=== PATIENT | female | born 1975 | race African-American/Black ===

== ENCOUNTER 2025-03-23 13:19 | Inpatient (IN) | payer OTHER ==
[~2025-03-23] VITALS: Ht 170.2 cm; Wt 85.9 kg
[2025-03-23] MEDS: 0.9%NACL 1000ML 1,000 ML IV ONE (13:44)
[2025-03-23 13:48] LABS: IMMATURE GRANULOCYTE ABSOLUTE 0.06 K/uL (0-1); NUCLEATED RED BLOOD CELLS 0.0 % (0.0-0.19); PLATELET COUNT (AUTO) 253 K/uL (130-400); RED BLOOD CELL COUNT(AUTO) 4.86 MIL/uL (4.00-5.50); RED CELL DISTRIBUTION WIDTH 13.7 % (11.0-15.5); WHITE BLOOD COUNT (AUTO) 10.8 K/uL (4.8-10.8)
[2025-03-23 13:56] LABS: CREATININE 0.7 mg/dL (0.5-1.0); GLOMERULAR FILTR. RATE CALC 107.0 mL/min (>90); GLUCOSE,RANDOM 111.0 mg/dL (70-105); SODIUM SERUM 142.0 mmol/L (136-145); UREA NITROGEN, BLOOD 12.0 mg/dL (7-18)
[2025-03-23 14:01] LABS: ASPARTATE AMINOTRANSFERASE 23.0 U/L (10-37); TOTAL PROTEIN, SERUM 8.8 g/dL (6.0-8.3)
--- NOTE | 2025-03-23 14:26 | EKG ---
[facility] Test Date: 2025-03-23 Test Time: 14:07:51 Pat Name: AMELIA QUIJANO Department: ED Room: ED Gender: F Imaging Services Director: [id number] : 1975 Requested By: ELENA VALLEJO Order Number: [id number] Reading MD: Devante Patel Measurements Intervals [place] Rate: 95 P: 24 GA: 205 QRS: 17 QRSD: 85 T: 4 QT: 336 QTc: 423 Interpretive Statements Sinus rhythm Prolonged GA interval No previous ECG available for comparison Electronically Signed On 03-23-2025 22:20:19 CDT by Devante Patel Please click the below link to view image of tracing.
--- NOTE | 2025-03-23 16:21 | HMCIMG ---
EXAM: CT Abdomen and Pelvis Without IV contrast CLINICAL HISTORY: upper abdominal pain TECHNIQUE: Axial computed tomography images of the abdomen and pelvis without intravenous contrast. CONTRAST: No IV contrast. COMPARISON: None provided. FINDINGS: LUNG BASES: Dependent airway disease along bilateral lower lobes, presumed to represent basal atelectasis. LIVER: Unremarkable. GALLBLADDER AND BILE DUCTS: The gallbladder is not well visualized. No biliary ductal dilatation is evident. PANCREAS: Unremarkable. SPLEEN: Unremarkable. ADRENAL GLANDS: Unremarkable. KIDNEYS, URETERS, AND BLADDER: The kidneys appear within normal limits. There is no hydronephrosis or hydroureter. No urinary calculi are seen. STOMACH AND BOWEL: Colonic diverticulosis without diverticulitis. Unremarkable appearance of the stomach and small bowel. No evidence of bowel obstruction. No evidence suggesting enteritis or colitis. Question post surgical changes to the abdominal wall. APPENDIX: Appendix is not visualized however no inflammatory changes. PERITONEUM: No free fluid. No free air. LYMPH NODES: No enlarged lymphadenopathy is evident. VASCULATURE: No evidence of abdominal aortic aneurysm. BONES: No aggressively appearing osseous lesion. No acute osseous pathology is evident. IMPRESSION: No acute intraabdominal or pelvic pathology. /[place]
--- NOTE | 2025-03-23 18:21 | ERN ---
ED Note History of Present Illness Stated Complaint: N/V Chief Complaint: Nausea,Vomiting,Diarrhea Time Seen by MD: 13:20 Dictation: 49-year-old female presenting to the emergency department with epigastric pain nausea vomiting no diarrhea few days but worse today. Patient reports 8/10 cramping pain. History of gallbladder removal. Allergies: Coded Allergies: Sulfa (Sulfonamide Antibiotics) (Unverified Allergy, Unknown, 03/23/25) sulfamethoxazole (Unverified Allergy, Unknown, 03/23/25) trimethoprim (Unverified Allergy, Unknown, 03/23/25) Past Medical History Past Medical History: Anxiety, Migraines Surgical History: None Review of System Dictation Constitutional: Negative for fever,chills, and weight loss Eyes: Negative for injury, pain,redness, and discharge ENT: Negative for injury,pain or swelling Cardiovascular: Negative for chest pain, palpitations, and edema Respiratory: Negative for shortness of breath, cough, and wheezing, Abdomen/GI: Per HPI Back: Negative for injury and pain : Negative for injury, bleeding and discharge MS/Extremity: Negative for injury and deformity Skin: Negative for rash, and discoloration Neuro: Negative for headache, weakness, numbness, tingling, and seizure Psych: Negative for suicide ideation, homicidal ideation, and hallucinations Initial Vital Sign VS Vital Signs Date Time Temp Pulse Resp B/P (MAP) Pulse Ox O2 Delivery O2 Flow Rate FiO2 03/23/25 13:20 98.2 97 18 157/92 98 03/23/25 13:49 Room Air* 0 21 Physical Exam Dictation General: awake, alert, uncomfortable Head/Face: Normocephalic, atraumatic Eyes: PERRL, EOMI, vision at baseline ENT: oral cavity clear, TMs clear, no signs of infection Neck: Trachea midline, supple, no nuchal rigidity Cardiovascular: RRR, normal S1/S2, No MRGs, no JVD Respiratory: CTAB, no respiratory distress, No rales or wheezes Abdomen: Soft, TTP diffusely, non-distended, normal bowel sounds, no guarding or rebound. Skin: Warm, dry, normal turgor, no rash MS/Extremity: Pulses equal, no cyanosis, neurovascular intact, FROM Neuro: COAx4, GCS 15, strength 5/5, CN 2-12 intact, normal cerebellar exam, normal gait, Psych: Normal behavior, mood, and affect normal Results (Laboratory/Radiology) Laboratory/Radiology Laboratory Tests Test 03/23/25 13:41 White Blood Count 10.8 K/uL (4.8-10.8) Red Blood Count 4.86 MIL/uL (4.00-5.50) Hemoglobin 14.4 g/dL (12.0-16.0) Hematocrit 44.0 % (36-48) Mean Corpuscular Volume 90.5 fL (79-99) Mean Corpuscular Hemoglobin 29.6 pg (27.0-33.0) Mean Corpuscular Hemoglobin Concent 32.7 g/dL (32.0-36.0) Red Cell Distribution Width 13.7 % (11.0-15.5) Platelet Count 253 K/uL (130-400) Mean Platelet Volume 9.6 fL (7.5-10.5) Immature Granulocyte % (Auto) 0.6 % (0-1) Neutrophils (%) (Auto) 70.4 % (40.0-77.0) Lymphocytes (%) (Auto) 23.2 % (21.0-51.0) Monocytes (%) (Auto) 5.1 % (3.0-13.0) Eosinophils (%) (Auto) 0.3 % (0.0-8.0) Basophils (%) (Auto) 0.4 % (0.0-5.0) Neutrophils # (Auto) 7.7 K/uL (1.8-7.7) Lymphocytes # (Auto) 2.5 K/uL (1.0-4.8) Monocytes # (Auto) 0.6 K/uL (0.1-1.0) Eosinophils # (Auto) 0.03 K/uL (0.00-0.70) Basophils # (Auto) 0.04 K/uL (0.00-0.20) Absolute Immature Granulocyte (auto 0.06 K/uL (0-1) Nucleated Red Blood Cells 0.0 % (0.0-0.19) Sodium Level 142 mmol/L (136-145) Potassium Level 3.7 mmol/L (3.5-5.1) Chloride Level 103 mmol/L (101-111) Carbon Dioxide Level 26 mmol/L (21-32) Blood Urea Nitrogen 12 mg/dL (7-18) Creatinine 0.7 mg/dL (0.5-1.0) Glomerular Filtration Rate Calc 107 mL/min (>90) Random Glucose 111 mg/dL (70-105) H Total Calcium 9.9 mg/dL (8.5-10.1) Total Bilirubin 0.3 mg/dL (0.2-1.0) Direct Bilirubin 0.1 mg/dL (0.0-0.3) Aspartate Amino Transf (AST/SGOT) 23 U/L (10-37) Alanine Aminotransferase (ALT/SGPT) 21 U/L (12-78) Alkaline Phosphatase 109 U/L (50-136) Troponin I High Sensitivity 4 ng/L (4-50) Total Protein 8.8 g/dL (6.0-8.3) H Albumin 4.2 g/dL (3.5-5.0) Lipase 40 U/L (16-77) Labs Reviewed?: Yes EKG Comment: Heart rate 95 normal sinus rhythm normal intervals ED Course ED Course Orders Procedure Category Date Status Time 12 Lead Ekg Tracing- EKG 03/23/25 Complete Technical 13:29 Basic Metabolic Panel LAB 03/23/25 Complete 13:29 Cbc With Differential LAB 03/23/25 Complete 13:29 Hepatic Function Panel LAB 03/23/25 Complete 13:29 Lipase LAB 03/23/25 Complete 13:29 Troponin I High LAB 03/23/25 Complete Sensitivity 13:29 Ondansetron 4mg Inj PHA 03/23/25 Complete (Zofran 4mg Inj) 13:30 0.9%Nacl 1000ml (Ns PHA 03/23/25 Complete 1000ml) 13:30 Morphine 4mg Syg PHA 03/23/25 Complete (Morphine 4mg Syg) 15:00 Ct Abd/Pel Wo Con CT 03/23/25 Resulted Renal/Appy 14:43 Ondansetron 4mg Inj PHA 03/23/25 Complete (Zofran 4mg Inj) 17:00 Current Medications Medications (Trade) Dose Ordered Sig/Phill Route PRN Reason Start Time Stop Time Status Last Admin Dose Admin Morphine Sulfate (morPHINE 4MG SYG) 4 mg ONCE ONCE IVP 03/23/25 15:00 03/23/25 15:01 DC 03/23/25 15:07 Ondansetron HCl (zoFRAN 4MG INJ) 4 mg ONCE ONCE IVP 03/23/25 13:30 03/23/25 13:32 DC 03/23/25 13:44 Ondansetron HCl (zoFRAN 4MG INJ) 4 mg ONCE ONCE IVP 03/23/25 17:00 03/23/25 17:01 DC 03/23/25 16:56 Sodium Chloride 1,000 ml @ 0 mls/hr ONCE ONCE IV 03/23/25 13:30 03/23/25 13:32 DC 03/23/25 13:44 Vital Signs Date Time Temp Pulse Resp B/P (MAP) Pulse Ox O2 Delivery O2 Flow Rate FiO2 03/23/25 15:54 98.1 94 17 128/72 100 Room Air* 0 21 03/23/25 13:49 98.6 96 20 148/92 100 Room Air* 0 21 03/23/25 13:20 98.2 97 18 157/92 98 Medical Decision Making MDM MDM: Differential diagnosis: Rationale: Tests considered and ordered secondary to shared decision making include: labs, ECG and radiology Previous outside records reviewed: Old ER visits. Risk of complication and/or morbidity or mortality of patient management: None Medications-Per medication reconciliation Need for hospitalization: Patient does meet criteria for hospitalization. Need for emergency major/minor surgery: No There are no social concerns with this patient. Prescription drug management Prescriptions will include symptomatic care Patient's prior external medical records from other ER visits were reviewed by me as indicated. Prior testing and results from previous visits were reviewed. Prior tests were taken into account with medical decision making and resource utilization, independent historian/historians were used to obtain complete medical history. I independently interpreted the test that were performed, results were reviewed by me and considered findings on radiology if ordered. Medical management and examination interpretation discussions were had by me with other qualified healthcare professionals as indicated for the patient's care. 49-year-old female with intractable vomiting and abdominal pain initial workup stable IV fluids and pain medicine given x2. DX & DISP Disposition: Observation Departure Impression: Primary Impression: Acute vomiting Additional Impression: Intractable abdominal pain Condition: Stable Referrals: SELF,REFERRAL (PCP) ELENA VALLEJO MD Mar 23, 2025 18:21
--- NOTE | 2025-03-23 18:38 | HP ---
History of Present Illness Reason for Visit: nv History of Present Illness Ms. Perla is a 49-year-old female that was seen and examined today on 03/23/2025. Patient is a good historian of personal health Patient reports that she came to the emergency department with a chief complaint of abdominal pain. Onset was three days ago. Location is epigastric. Duration is on and off. Character is described as stabbing pain. Symptoms are aggravated with eating. There was no alleviating factors. Patient reports associated nausea and vomiting. Past Medical History ADDITIONAL PAST MEDICAL HISTORY: [Denies] SOCIAL HISTORY: [Negative for smoking, alcohol use, drug use. Patient lives with the daughter, Alejandra. Patient has good access to health care through her insurance. 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 Patient denies difficulty paying her bills.] SURGICAL HISTORY: [Hysterectomy, oophorectomy, cholecystectomy, section x3, lysis of adhesions, tonsillectomy, abdominoplasty with muscle plication] Review of Systems General: No Fever, No Chills, No Night Sweats, No Fatigue, No Malaise, No Appetite, No Other HEENT: No Head Aches, No Visual Changes, No Eye Pain, No Ear Pain, No Dysphasia, No Sinus Congestion, No Post Nasal Drip, No Sore Throat, No Other Pulmonary: No Dyspnea, No Cough, No Pleuritic Chest Pain, No Other Cardiovascular: No: Chest Pain, Palpitations, Orthopnea, Paroxysmal Noc. Dyspnea, Edema, Lt Headedness, Other Gastrointestinal: Nausea, Vomiting, Abdominal Pain; No: Diarrhea, Constipation, Melena, Hematochezia, Other Genitourinary: No Dysuria, No Frequency, No Incontinence, No Hematuria, No Retention, No Other Musculoskeletal: No: other, neck pain, shoulder pain, arm pain, back pain, hand pain, leg pain, foot pain Skin: No Urticaria, No Rash, No Other Neurological: No: Weakness, Numbness, Incoordination, Change in speech, Confusion, Seizures, Other Allergies: Coded Allergies: Sulfa (Sulfonamide Antibiotics) (Unverified Allergy, Unknown, 03/23/25) sulfamethoxazole (Unverified Allergy, Unknown, 03/23/25) trimethoprim (Unverified Allergy, Unknown, 03/23/25) Exam Vital Signs Vital Signs Date Time Temp Pulse Resp B/P (MAP) Pulse Ox O2 Delivery O2 Flow Rate FiO2 03/23/25 15:54 98.1 94 17 128/72 100 Room Air* 0 21 General Appearance: Alert, Oriented X3, Cooperative, mild distress HEENT: Atraumatic, EOMI, Mucous membr. moist/pink Respiratory: Clear to auscultation, Normal air movement, NL respiratory effort Cardiovascular: Regular rate, Regular rhythm, Normal S1, Normal S2 Abdominal: Normal bowel sounds, Soft, No tenderness Extremities: No edema Skin: No significant lesion Neuro: Normal speech, Strength at 5/5 X4 ext, Sensation intact, Cranial nerves 3-12 NL Psych/Mental Status: Mental status NL, Mood NL, Thoughts/Content NL Assessment/Plan ASSESSMENT: [ Intractable abdominal pain, POA Intractable nausea and vomiting, POA] PLAN: [ Admit patient to medical floor as inpatient status. Reviewed patient's CT of abdomen and pelvis which was unremarkable. Reviewed patient's labs which were unremarkable. Check urinalysis, follow up with the results. As needed analgesia with morphine. As-needed antiemetic, Zofran. Keep patient NPO except for medications with tiny sips of water for GI rest. Lactated Ringer's at 125 mL/HR IV fluid maintenance therapy GI prophylaxis, famotidine DVT prophylaxis, Lovenox ADVANCED CARE PLANNING 1. Which of the following were discussed? Hospice Care - Yes Therapeutic options - yes Advance Directives - Yes - patient states he does not have any advance direc tives in place at this time, however her daughter Alejandra Walker can make decisions for her if she becomes unable. Other discussions - patient wishes to remain a full code at this time 2. Discussed with who? Patient 3. Voluntary nature of this service was explained to the patient? Yes 4. Amount of time spent - ___16 minutes____ 5. Reviewed by Physician? (if this service was performed by NPP) Yes ALEA CEDEÑO PLATFORM SOFTWARE ENGINEER Mar 23, 2025 18:38
[2025-03-23] MEDS: LACTATED RINGERS 1000ML 1,000 ML IV SCH (19:43)
[2025-03-23] MEDS: FAMOTIDINE 20MG TAB PO SCH (20:13)
[2025-03-23] MEDS: ENOXAPARIN SODIUM 40 MG/0.4 ML SYRINGE SQ SCH (20:14)
--- NOTE | 2025-03-23 22:58 | NUR ---
PT TRANSFERRED TO A HOSPITAL BED AT THIS TIME.
[2025-03-23] MEDS: PROMETHAZINE HCL 25 MG/ML 1ML AMPULE IM ONE (23:40)
[2025-03-24] VITALS (8 sets, daily range): BP systolic 109–134; BP diastolic 58–90; PULSE 82–93; RESP 16–20; TEMP 98.1–98.4; O2SAT 98–100
[2025-03-24] MEDS ORDERED: ALPR0.5T PO (03:57)
--- NOTE | 2025-03-24 04:30 | NUR ---
ADMISSION NOTE RECEIVED REPORT FROM LORE BUTLER. PATIENT ALERT, ORIENTED, ABLE TO AMBULATE AND MAKE NEEDS KNOWN. PATIENT SETTLED INTO BED, GIVEN CALL LIGHT. CONFIRMED MEDICATION LIST AND PREFERRED PHARMACY. PATIENT CONNECTED TO LR @ 125 ML/HR, ON ROOM AIR. PHYSICAL ASSESSMENT PERFORMED, SEE ASSESSMENT DOCUMENTATION. CALL LIGHT IN REACH OF PATIENT.
[2025-03-24 06:23] LABS: IMMATURE GRANULOCYTE ABSOLUTE 0.04 K/uL (0-1); NUCLEATED RED BLOOD CELLS 0.0 % (0.0-0.19); PLATELET COUNT (AUTO) 214 K/uL (130-400); RED BLOOD CELL COUNT(AUTO) 4.18 MIL/uL (4.00-5.50); RED CELL DISTRIBUTION WIDTH 13.8 % (11.0-15.5); WHITE BLOOD COUNT (AUTO) 8.8 K/uL (4.8-10.8)
[2025-03-24 06:34] LABS: CREATININE 0.7 mg/dL (0.5-1.0); GLOMERULAR FILTR. RATE CALC 107.0 mL/min (>90); GLUCOSE,RANDOM 88.0 mg/dL (70-105); PHOSPHORUS 4.6 mg/dL (2.5-4.9); SODIUM SERUM 143.0 mmol/L (136-145); UREA NITROGEN, BLOOD 11.0 mg/dL (7-18)
--- NOTE | 2025-03-24 11:12 | PN ---
[facility] PROGRESS NOTE Date of Service: Mar 24, 2025 Time of Service: 11:08 SUBJECTIVE: 03/24 patient is seen and examined at bedside, case discussed with the RN, no acute events overnight, patient alert oriented x3, hemodynamically stable, she complains of migraine headache, requesting Fioricet. During my visit patient stated that she was complaining of intractable vomiting when she presented to the ER associated with the epigastric discomfort, amylase and lipase negative, CT of the abdomen no acute findings. We have requested a 12 lead EKG, echocardiogram to evaluate ejection fraction, GI consultation for possible EGD, we will start Fioricet one time now, follow troponin level, amylase and lipase level stat. We will start the patient on regular diet. Follow UA. If medically stable, and no plan from GI standpoint, anticipate discharge home in the next 24 hours. REVIEW OF SYSTEMS CONSTITUTIONAL: Denies fevers, chills, or night sweats. No unintentional weight loss reported. NEUROLOGICAL: Denies headache, amaurosis fugax, motor weakness, sensory deficit, vertigo/spinning sensation, gait abnormalities, or tremors. ENT: No hearing loss, otalgia, otorrhea, rhinitis, rhinorrhea, hoarseness, or sore throat. CARDIOVASCULAR: Denies any exertional angina, dyspnea on exertion, orthopnea, paroxysmal nocturnal dyspnea, palpitations, life-threatening arrhythmias, claudication. PULMONARY: Denies any shortness of breath, cough, phlegm/sputum, hemoptysis, pleuritic chest pain. SLEEP: Denies morning headaches, daytime somnolence or napping. Denies difficulty falling asleep, staying asleep, waking from sleep. Denies knowledge of snoring. GASTROINTESTINAL: Denies any type of dysphagia to either liquids or solids. Denies nausea, vomiting, pyrosis, early satiety, abdominal pain, diarrhea, constipation, or changes in stool consistency or caliber. Denies coffee-ground emesis, hematemesis, hematochezia, or melanotic stools. GENITOURINARY: Denies frequency, urgency, nocturia, hematuria or incontinence (Storage/Irritative symptoms.) Low urinary stream, straining to void, urinary intermittency or hesitancy, splitting of the voiding stream, terminal dribbling. ENDOCRINOLOGIC: Denies polyuria, polydipsia, polyphagia or heat/cold intolerances. HEMATOLOGIC: Denies thrombophilia/previous clots, or coagulopathy/bleeding disorders. ONCOLOGIC: Denies personal history of malignancy. DERMATOLOGIC: Denies rashes or pruritus. PSYCHIATRIC: Denies any suicidal or homicidal ideation. Denies hallucinations. PHYSICAL EXAM GENERAL APPEARANCE: The patient is awake, alert, and oriented, in no acute cardiopulmonary distress. NEUROLOGICAL: Cranial nerves II-XII grossly intact. Motor is 5/5 in bilateral upper and lower extremities proximal to distal. No sensory deficits. HEENT: Face is symmetric. Pupils are equal and reactive. Extraocular movements are intact. NECK: Supple. No JVD. No thyromegaly. No submental, submandibular, pre- /postauricular, occipital or supraclavicular lymphadenopathy. CHEST: Normal chest expansion. No Telemetry. LUNGS: Absence of any rales, rhonchi or any wheezing. CARDIOVASCULAR: Regular. S1 and S2 normal. No appreciable rubs, murmurs or gallops. ABDOMEN: Soft, nontender, and nondistended. There is no rebound, voluntary guarding, or rigidity. : Deferred. No Bob. EXTREMITIES: Non-edematous and not cyanotic. No clubbing. Good capillary refill. SKIN: No skin breakdown. Vital Signs (last 8hr) Date Time Temp Pulse Resp B/P (MAP) Pulse Ox O2 Delivery O2 Flow Rate FiO2 03/24/25 07:42 98.2 85 18 109/71 98 Room Air 03/24/25 04:00 98.1 82 16 98 03/24/25 03:20 98 Room Air* 0 21 03/24/25 03:11 88 18 145/51 100 Room Air* 0 21 LABS: Laboratory: Test 03/24/25 06:02 03/23/25 13:41 Range/Units White Blood Count 8.8 4.8-10.8 K/uL Red Blood Count 4.18 4.00-5.50 MIL/uL Hemoglobin 12.3 12.0-16.0 g/dL Hematocrit 38.8 36-48 % Mean Corpuscular Volume 92.8 79-99 fL Mean Corpuscular Hemoglobin 29.4 27.0-33.0 pg Mean Corpuscular Hemoglobin Concent 31.7 L 32.0-36.0 g/dL Red Cell Distribution Width 13.8 11.0-15.5 % Platelet Count 214 130-400 K/uL Mean Platelet Volume 9.6 7.5-10.5 fL Immature Granulocyte % (Auto) 0.5 0-1 % Neutrophils (%) (Auto) 56.0 40.0-77.0 % Lymphocytes (%) (Auto) 32.6 21.0-51.0 % Monocytes (%) (Auto) 10.0 3.0-13.0 % Eosinophils (%) (Auto) 0.6 0.0-8.0 % Basophils (%) (Auto) 0.3 0.0-5.0 % Neutrophils # (Auto) 4.9 1.8-7.7 K/uL Lymphocytes # (Auto) 2.9 1.0-4.8 K/uL Monocytes # (Auto) 0.9 0.1-1.0 K/uL Eosinophils # (Auto) 0.05 0.00-0.70 K/uL Basophils # (Auto) 0.03 0.00-0.20 K/uL Absolute Immature Granulocyte (auto 0.04 0-1 K/uL Nucleated Red Blood Cells 0.0 0.0-0.19 % Sodium Level 143 136-145 mmol/L Potassium Level 3.6 3.5-5.1 mmol/L Chloride Level 107 101-111 mmol/L Carbon Dioxide Level 28 21-32 mmol/L Blood Urea Nitrogen 11 7-18 mg/dL Creatinine 0.7 0.5-1.0 mg/dL Glomerular Filtration Rate Calc 107 >90 mL/min Random Glucose 88 70-105 mg/dL Total Calcium 9.1 8.5-10.1 mg/dL Phosphorus Level 4.6 2.5-4.9 mg/dL Magnesium Level 1.90 1.80-2.40 mg/dL Total Bilirubin 0.3 0.2-1.0 mg/dL Direct Bilirubin 0.1 0.0-0.3 mg/dL Aspartate Amino Transf (AST/SGOT) 23 10-37 U/L Alanine Aminotransferase (ALT/SGPT) 21 12-78 U/L Alkaline Phosphatase 109 50-136 U/L Troponin I High Sensitivity 4 4-50 ng/L Total Protein 8.8 H 6.0-8.3 g/dL Albumin 4.2 3.5-5.0 g/dL Lipase 40 16-77 U/L Current Medications Medications (Trade) Dose Ordered Sig/Phill Route PRN Reason Start Time Stop Time Status Last Admin Dose Admin Acetaminophen (TYLenol 325MG TAB) 650 mg Q6H PRN PO TEMPERATURE GREATER THAN 101.5 03/23/25 19:30 04/22/25 19:29 03/24/25 03:34 650 MG Alprazolam (XANax 0.5MG) 0.5 mg DAILY PRN PO anxiety 03/24/25 10:00 04/23/25 09:59 Enoxaparin Sodium (Lovenox) 40 mg DAILY SQ 03/23/25 20:00 04/22/25 19:59 03/24/25 08:25 40 MG Famotidine (Pepcid 20mg Tab) 20 mg DAILY PO 03/23/25 20:00 04/22/25 19:59 03/24/25 08:24 20 MG Hydralazine HCl (APRESOLine 20MG INJ) 10 mg Q6H PRN IV For:SBP above 160;DBP above 90 03/23/25 19:30 04/22/25 19:29 Lactated Ringer's 1,000 ml @ 125 mls/hr Q8H IV 03/23/25 19:00 04/22/25 18:59 03/24/25 03:34 125 MLS/HR Morphine Sulfate (morPHINE 4MG SYG) 4 mg Q4H PRN IVP SEVERE PAIN (7-10) 03/23/25 19:30 03/30/25 19:29 03/24/25 08:30 4 MG Ondansetron HCl (zoFRAN 4MG INJ) 4 mg Q6H PRN IV NAUSEA/VOMITING 03/23/25 19:30 04/22/25 19:29 03/24/25 03:38 4 MG DIAGNOSTICS / RADIOLOGY: [ ] ASSESSMENT: Intractable abdominal pain, POA Intractable nausea and vomiting, POA PLAN: Remains admitted to medical floor CT abdomen no acute intra-abdominal or pelvic pathology May benefit from GI consultation for possible EGD Order urine drug screen As needed analgesia with morphine. As-needed antiemetic, Zofran. Keep patient NPO except for medications with tiny sips of water for GI rest. Lactated Ringer's at 125 mL/HR IV fluid maintenance therapy GI prophylaxis, famotidine DVT prophylaxis, Lovenox SONA MURCIA MD 16, 2025 11:12
--- NOTE | 2025-03-24 11:32 | NUR ---
DRUG SCREEN PT REFUSE DRUG SCREEN. STATES IS TAKING MORPHINE AND DILAUDID AND IT WILL COME OUT POSITIVE.
--- NOTE | 2025-03-24 11:42 | NUR ---
DCP :HOME Pt currently lives with son and dgt. Pt does not have DME, home health, or provider services at this time. Pt is an employee with [employer] [facility] [place] and completes ADLs independently. Pt does not have a PCP yet but was going to be looking for one. Pt recently moved to [facility] from [place] 3 months ago. At [place] pt will go home and family can assist with transportation. Addendum: 03/24/25 at 1145 by NIKOS FITZGERALD SS Amended: Links added.
--- NOTE | 2025-03-24 13:20 | NUR ---
ROUND DR GONSALEZ AT BEDSIDE.
[2025-03-24] MEDS: BUTALB/ACETAMINOPHEN/CAFFEINE 1 EACH TABLET PO ONE (14:35)
[2025-03-24 15:16] LABS: ADD UA MICROSCOPIC YES; APPEARANCE,URINE CLEAR (CLEAR); GLUCOSE, URINE (UA) NEGATIVE (NEGATIVE); LEUKOCYTE ESTERASE ,URINE NEGATIVE Leu/uL (NEGATIVE); NITRATE,URINE NEGATIVE (NEGATIVE); OCCULT BLOOD,URINE SMALL (NEGATIVE)
[2025-03-24 15:19] LABS: SQUAMOUS EPITHELIAL CELL,UR FEW /HPF (0-2); UNCLASSIFIED CRYSTAL 1 /HPF (None Seen)
[2025-03-24 15:25] LABS: AMPHET/METH SCREEN,URINE NEGATIVE (NEGATIVE); BARBITURATE SCREEN, URINE NEGATIVE (NEGATIVE); CANNABINOID SCREEN,URINE NEGATIVE (NEGATIVE); COCAINE SCREEN,URINE NEGATIVE (NEGATIVE)
--- NOTE | 2025-03-24 16:27 | CONS ---
GASTROENTEROLOGY CONSULTATION NOTE Date of Consultation: Mar 24, 2025 Time of Consultation: 16:27 History of Present Illness: [ ] Review of Systems: CONSTITUTIONAL: No malaise or change in sensation of wellbeing. ENMT: No rhinorrhea, otorrhea, sinus pain, ear ache. CARDIOVASCULAR: No angina, palpitations, orthopnea or paroxysmal dyspnea. RESPIRATORY: No SOB. GASTROINTESTINAL: No abdominal pain, nausea, vomiting, diarrhea, hematemesis, melena or change in the patient's habitual bowel movements consistency/number. GENITOURINARY: No dysuria, hematuria or change in bladder continence. MUSCULOSKELETAL: No new muscle pain or decrease in muscular strength. No new joint swelling, redness or tenderness. SKIN: No new rash. Past Medical History: [ ] Past Surgical History: [ ] Past Social History: [ ] Family History: [ ] Coded Allergies: Sulfa (Sulfonamide Antibiotics) (Unverified Allergy, Unknown, 03/23/25) sulfamethoxazole (Unverified Allergy, Unknown, 03/23/25) trimethoprim (Unverified Allergy, Unknown, 03/23/25) Physical Exam: GEN: Awake, alert, oriented in person, time and place, and in no acute distress. HEENT: No sinus tenderness. Tympanic membranes were not examined. No rhinorrhea. Oral pharyngeal mucosa is pink, moist and within normal limits. Neck is supple with no cervical lymphadenopathy, thyromegaly or JVD. CHEST: Inspection, palpation and percussion of the chest were unremarkable. Lung auscultation revealed normal breath sounds bilaterally. CARDIAC: PMI is within normal limits. Heart sounds are regular. Normal S1, S2. No gallop or murmur. ABD: Soft, non-tender and not distended. No peritoneal signs on palpation. No organomegaly. Normal bowel sounds. EXT: No cyanosis or clubbing. No edema. SKIN: Intact. No rashes. JOINTS: No evidence of synovitis or acute arthritis. NEURO: Alert and oriented to name, place and person. Cranial nerve examination is unremarkable. No focal motor deficits. Normal speech. Gait is normal. Strength is normal. Vital Sign (Last 24 Hours) 03/24/25 03/24/25 03:20 15:55 Temp 98.4 Pulse 93 Resp 18 B/P (MAP) 121/58 Pulse Ox 99 O2 Delivery Room Air O2 Flow Rate 0 FiO2 21 Laboratory: [ ] Laboratory: Test 03/24/25 14:10 03/24/25 13:38 03/24/25 06:02 03/23/25 13:41 Range/Units Urine Color YELLOW YELLOW Urine Appearance CLEAR CLEAR Urine pH 5.5 5.0-8.0 Urine Specific [place] 1.023 1.001-1.031 Urine Protein NEGATIVE NEGATIVE mg/dL Urine Glucose (UA) NEGATIVE NEGATIVE mg/dL Urine Ketones 10 H NEGATIVE mg/dL Urine Occult Blood SMALL H NEGATIVE Urine Nitrate NEGATIVE NEGATIVE Urine Bilirubin NEGATIVE NEGATIVE mg/dL Urine Urobilinogen 0.2 0.2-1.0 mg/dL Urine Leukocyte Esterase NEGATIVE NEGATIVE Lupe/uL Urine RBC 6-10 H 0-1 /HPF Urine WBC 2-5 H 0-1 /HPF Urine Squamous Epithelial Cells FEW 0-2 /HPF Urine Other Crystals (Auto) 1 None Seen /HPF Urine Bacteria MOD None Seen /HPF Urine Opiates Screen POSITIVE H NEGATIVE Urine Barbiturates Screen NEGATIVE NEGATIVE Urine Phencyclidine Screen NEGATIVE NEGATIVE Urine Amphetamines Screen NEGATIVE NEGATIVE Urine Benzodiazepines Screen NEGATIVE NEGATIVE Urine Cocaine Screen NEGATIVE NEGATIVE Urine Marijuana (THC) Screen NEGATIVE NEGATIVE Troponin I High Sensitivity 7 4-50 ng/L Amylase Level 91 25-115 U/L Lipase 31 16-77 U/L White Blood Count 8.8 4.8-10.8 K/uL Red Blood Count 4.18 4.00-5.50 MIL/uL Hemoglobin 12.3 12.0-16.0 g/dL Hematocrit 38.8 36-48 % Mean Corpuscular Volume 92.8 79-99 fL Mean Corpuscular Hemoglobin 29.4 27.0-33.0 pg Mean Corpuscular Hemoglobin Concent 31.7 L 32.0-36.0 g/dL Red Cell Distribution Width 13.8 11.0-15.5 % Platelet Count 214 130-400 K/uL Mean Platelet Volume 9.6 7.5-10.5 fL Immature Granulocyte % (Auto) 0.5 0-1 % Neutrophils (%) (Auto) 56.0 40.0-77.0 % Lymphocytes (%) (Auto) 32.6 21.0-51.0 % Monocytes (%) (Auto) 10.0 3.0-13.0 % Eosinophils (%) (Auto) 0.6 0.0-8.0 % Basophils (%) (Auto) 0.3 0.0-5.0 % Neutrophils # (Auto) 4.9 1.8-7.7 K/uL Lymphocytes # (Auto) 2.9 1.0-4.8 K/uL Monocytes # (Auto) 0.9 0.1-1.0 K/uL Eosinophils # (Auto) 0.05 0.00-0.70 K/uL Basophils # (Auto) 0.03 0.00-0.20 K/uL Absolute Immature Granulocyte (auto 0.04 0-1 K/uL Nucleated Red Blood Cells 0.0 0.0-0.19 % Sodium Level 143 136-145 mmol/L Potassium Level 3.6 3.5-5.1 mmol/L Chloride Level 107 101-111 mmol/L Carbon Dioxide Level 28 21-32 mmol/L Blood Urea Nitrogen 11 7-18 mg/dL Creatinine 0.7 0.5-1.0 mg/dL Glomerular Filtration Rate Calc 107 >90 mL/min Random Glucose 88 70-105 mg/dL Total Calcium 9.1 8.5-10.1 mg/dL Phosphorus Level 4.6 2.5-4.9 mg/dL Magnesium Level 1.90 1.80-2.40 mg/dL Total Bilirubin 0.3 0.2-1.0 mg/dL Direct Bilirubin 0.1 0.0-0.3 mg/dL Aspartate Amino Transf (AST/SGOT) 23 10-37 U/L Alanine Aminotransferase (ALT/SGPT) 21 12-78 U/L Alkaline Phosphatase 109 50-136 U/L Total Protein 8.8 H 6.0-8.3 g/dL Albumin 4.2 3.5-5.0 g/dL Current Medications Medications (Trade) Dose Ordered Sig/Phill Route PRN Reason Start Time Stop Time Status Last Admin Dose Admin Acetaminophen (TYLenol 325MG TAB) 650 mg Q6H PRN PO TEMPERATURE GREATER THAN 101.5 03/23/25 19:30 04/22/25 19:29 03/24/25 03:34 650 MG Alprazolam (XANax 0.5MG) 0.5 mg DAILY PRN PO anxiety 03/24/25 10:00 04/23/25 09:59 Enoxaparin Sodium (Lovenox) 40 mg DAILY SQ 03/23/25 20:00 04/22/25 19:59 7/16/25 08:25 40 MG Famotidine (Pepcid 20mg Tab) 20 mg DAILY PO 03/23/25 20:00 04/22/25 19:59 03/24/25 08:24 20 MG Hydralazine HCl (APRESOLine 20MG INJ) 10 mg Q6H PRN IV For:SBP above 160;DBP above 90 03/23/25 19:30 04/22/25 19:29 Lactated Ringer's 1,000 ml @ 125 mls/hr Q8H IV 03/23/25 19:00 04/22/25 18:59 03/24/25 11:19 125 MLS/HR Morphine Sulfate (morPHINE 4MG SYG) 4 mg Q4H PRN IVP SEVERE PAIN (7-10) 03/23/25 19:30 03/30/25 19:29 03/24/25 08:30 4 MG Ondansetron HCl (zoFRAN 4MG INJ) 4 mg Q6H PRN IV NAUSEA/VOMITING 03/23/25 19:30 04/22/25 19:29 03/24/25 03:38 4 MG Diagnostics / Radiology: [COPY/PASTE HERE IF NO REPORTS PLEASE DELETE SECTION] Assessment: [ ] Plan: [ ] [employer]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
[2025-03-24] MEDS: PROMETHAZINE HCL 25 MG/ML 1ML AMPULE IM ONE (22:19)
[2025-03-25] VITALS (20 sets, daily range): BP systolic 100–155; BP diastolic 65–92; PULSE 74–100; RESP 16–20; TEMP 97.7–98.5; O2SAT 98
[2025-03-25 06:39] LABS: NUCLEATED RED BLOOD CELLS 0.0 % (0.0-0.19); PLATELET COUNT (AUTO) 185.0 K/uL (130-400); RED BLOOD CELL COUNT(AUTO) 3.94 MIL/uL (4.00-5.50); RED CELL DISTRIBUTION WIDTH 13.7 % (11.0-15.5); WHITE BLOOD COUNT (AUTO) 7.7 K/uL (4.8-10.8)
[2025-03-25 06:50] LABS: ASPARTATE AMINOTRANSFERASE 17.0 U/L (10-37); CREATININE 0.9 mg/dL (0.5-1.0); GLOMERULAR FILTR. RATE CALC 79.0 mL/min (>90); GLUCOSE,RANDOM 92.0 mg/dL (70-105); SODIUM SERUM 144.0 mmol/L (136-145); TOTAL PROTEIN, SERUM 6.7 g/dL (6.0-8.3); UREA NITROGEN, BLOOD 9.0 mg/dL (7-18)
--- NOTE | 2025-03-25 07:28 | EKG ---
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
--- NOTE | 2025-03-25 10:28 | PN ---
[facility] PROGRESS NOTE Date of Service: Mar 25, 2025 Time of Service: 10:26 SUBJECTIVE: 03/24 patient is seen and examined at bedside, case discussed with the RN, no acute events overnight, patient alert oriented x3, hemodynamically stable, she complains of migraine headache, requesting Fioricet. During my visit patient stated that she was complaining of intractable vomiting when she presented to the ER associated with the epigastric discomfort, amylase and lipase negative, CT of the abdomen no acute findings. We have requested a 12 lead EKG, echocardiogram to evaluate ejection fraction, GI consultation for possible EGD, we will start Fioricet one time now, follow troponin level, amylase and lipase level stat. We will start the patient on regular diet. Follow UA. If medically stable, and no plan from GI standpoint, anticipate discharge home in the next 24 hours. 03/25 patient remains admitted to the medical floor, hemodynamically stable, afebrile, saturating normal on room air. Magnesium level 1.7, troponin negative, albumin 3.0, amylase and lipase are negative. UA negative for leukocyte esterase. Echocardiogram pending to evaluate ejection fraction. GI consulted, follow input and recommendation. During my visit the patient comfortably bed, alert oriented x3, case discussed with the RN, no acute events overnight, headache improved after the dose of Fioricet. No nausea, no vomiting, no abdominal discomfort. REVIEW OF SYSTEMS CONSTITUTIONAL: Denies fevers, chills, or night sweats. No unintentional weight loss reported. NEUROLOGICAL: Denies headache, amaurosis fugax, motor weakness, sensory deficit, vertigo/spinning sensation, gait abnormalities, or tremors. ENT: No hearing loss, otalgia, otorrhea, rhinitis, rhinorrhea, hoarseness, or sore throat. CARDIOVASCULAR: Denies any exertional angina, dyspnea on exertion, orthopnea, paroxysmal nocturnal dyspnea, palpitations, life-threatening arrhythmias, claudication. PULMONARY: Denies any shortness of breath, cough, phlegm/sputum, hemoptysis, pleuritic chest pain. SLEEP: Denies morning headaches, daytime somnolence or napping. Denies difficulty falling asleep, staying asleep, waking from sleep. Denies knowledge of snoring. GASTROINTESTINAL: Denies any type of dysphagia to either liquids or solids. Denies nausea, vomiting, pyrosis, early satiety, abdominal pain, diarrhea, constipation, or changes in stool consistency or caliber. Denies coffee-ground emesis, hematemesis, hematochezia, or melanotic stools. GENITOURINARY: Denies frequency, urgency, nocturia, hematuria or incontinence (Storage/Irritative symptoms.) Low urinary stream, straining to void, urinary intermittency or hesitancy, splitting of the voiding stream, terminal dribbling. ENDOCRINOLOGIC: Denies polyuria, polydipsia, polyphagia or heat/cold intoleran latesha. HEMATOLOGIC: Denies thrombophilia/previous clots, or coagulopathy/bleeding disorders. ONCOLOGIC: Denies personal history of malignancy. DERMATOLOGIC: Denies rashes or pruritus. PSYCHIATRIC: Denies any suicidal or homicidal ideation. Denies hallucinations. PHYSICAL EXAM GENERAL APPEARANCE: The patient is awake, alert, and oriented, in no acute cardiopulmonary distress. NEUROLOGICAL: Cranial nerves II-XII grossly intact. Motor is 5/5 in bilateral upper and lower extremities proximal to distal. No sensory deficits. HEENT: Face is symmetric. Pupils are equal and reactive. Extraocular movements are intact. NECK: Supple. No JVD. No thyromegaly. No submental, submandibular, pre- /postauricular, occipital or supraclavicular lymphadenopathy. CHEST: Normal chest expansion. No Telemetry. LUNGS: Absence of any rales, rhonchi or any wheezing. CARDIOVASCULAR: Regular. S1 and S2 normal. No appreciable rubs, murmurs or gallops. ABDOMEN: Soft, nontender, and nondistended. There is no rebound, voluntary guarding, or rigidity. : Deferred. No Bob. EXTREMITIES: Non-edematous and not cyanotic. No clubbing. Good capillary refill. SKIN: No skin breakdown. Vital Signs (last 8hr) Date Time Temp Pulse Resp B/P (MAP) Pulse Ox O2 Delivery O2 Flow Rate FiO2 03/25/25 07:42 98.1 83 19 119/74 98 Room Air 03/25/25 04:00 98.1 74 20 110/69 97 Room Air LABS: Laboratory: Test 03/25/25 06:30 03/24/25 14:10 03/24/25 13:38 03/24/25 06:02 Range/Units White Blood Count 7.7 4.8-10.8 K/uL Red Blood Count 3.94 L 4.00-5.50 MIL/uL Hemoglobin 11.7 L 12.0-16.0 g/dL Hematocrit 36.5 36-48 % Mean Corpuscular Volume 92.6 79-99 fL Mean Corpuscular Hemoglobin 29.7 27.0-33.0 pg Mean Corpuscular Hemoglobin Concent 32.1 32.0-36.0 g/dL Red Cell Distribution Width 13.7 11.0-15.5 % Platelet Count 185 130-400 K/uL Mean Platelet Volume 9.1 7.5-10.5 fL Nucleated Red Blood Cells 0.0 0.0-0.19 % Sodium Level 144 136-145 mmol/L Potassium Level 3.8 3.5-5.1 mmol/L Chloride Level 109 101-111 mmol/L Carbon Dioxide Level 32 21-32 mmol/L Blood Urea Nitrogen 9 7-18 mg/dL Creatinine 0.9 0.5-1.0 mg/dL Glomerular Filtration Rate Calc 79 >90 mL/min Random Glucose 92 70-105 mg/dL Total Calcium 8.7 8.5-10.1 mg/dL Magnesium Level 1.70 L 1.80-2.40 mg/dL Total Bilirubin 0.1 L 0.2-1.0 mg/dL Aspartate Amino Transf (AST/SGOT) 17 10-37 U/L Alanine Aminotransferase (ALT/SGPT) 19 12-78 U/L Alkaline Phosphatase 83 50-136 U/L Total Protein 6.7 6.0-8.3 g/dL Albumin 3.0 L 3.5-5.0 g/dL Serum Test, Qualitative NEGATIVE NEGATIVE Urine Color YELLOW YELLOW Urine Appearance CLEAR CLEAR Urine pH 5.5 5.0-8.0 Urine Specific [place] 1.023 1.001-1.031 Urine Protein NEGATIVE NEGATIVE mg/dL Urine Glucose (UA) NEGATIVE NEGATIVE mg/dL Urine Ketones 10 H NEGATIVE mg/dL Urine Occult Blood SMALL H NEGATIVE Urine Nitrate NEGATIVE NEGATIVE Urine Bilirubin NEGATIVE NEGATIVE mg/dL Urine Urobilinogen 0.2 0.2-1.0 mg/dL Urine Leukocyte Esterase NEGATIVE NEGATIVE Lupe/uL Urine RBC 6-10 H 0-1 /HPF Urine WBC 2-5 H 0-1 /HPF Urine Squamous Epithelial Cells FEW 0-2 /HPF Urine Other Crystals (Auto) 1 None Seen /HPF Urine Bacteria MOD None Seen /HPF Urine Opiates Screen POSITIVE H NEGATIVE Urine Barbiturates Screen NEGATIVE NEGATIVE Urine Phencyclidine Screen NEGATIVE NEGATIVE Urine Amphetamines Screen NEGATIVE NEGATIVE Urine Benzodiazepines Screen NEGATIVE NEGATIVE Urine Cocaine Screen NEGATIVE NEGATIVE Urine Marijuana (THC) Screen NEGATIVE NEGATIVE Troponin I High Sensitivity 7 4-50 ng/L Amylase Level 91 25-115 U/L Lipase 31 16-77 U/L Immature Granulocyte % (Auto) 0.5 0-1 % Neutrophils (%) (Auto) 56.0 40.0-77.0 % Lymphocytes (%) (Auto) 32.6 21.0-51.0 % Monocytes (%) (Auto) 10.0 3.0-13.0 % Eosinophils (%) (Auto) 0.6 0.0-8.0 % Basophils (%) (Auto) 0.3 0.0-5.0 % Neutrophils # (Auto) 4.9 1.8-7.7 K/uL Lymphocytes # (Auto) 2.9 1.0-4.8 K/uL Monocytes # (Auto) 0.9 0.1-1.0 K/uL Eosinophils # (Auto) 0.05 0.00-0.70 K/uL Basophils # (Auto) 0.03 0.00-0.20 K/uL Absolute Immature Granulocyte (auto 0.04 0-1 K/uL Phosphorus Level 4.6 2.5-4.9 mg/dL Test 03/23/25 13:41 Range/Units Direct Bilirubin 0.1 0.0-0.3 mg/dL Current Medications Medications (Trade) Dose Ordered Sig/Phill Route PRN Reason Start Time Stop Time Status Last Admin Dose Admin Acetaminophen (TYLenol 325MG TAB) 650 mg Q6H PRN PO TEMPERATURE GREATER THAN 101.5 03/23/25 19:30 04/22/25 19:29 03/24/25 03:34 650 MG Alprazolam (XANax 0.5MG) 0.5 mg DAILY PRN PO anxiety 03/24/25 10:00 04/23/25 09:59 03/24/25 23:43 0.5 MG Enoxaparin Sodium (Lovenox) 40 mg DAILY SQ 03/23/25 20:00 04/22/25 19:59 03/24/25 08:25 40 MG Famotidine (Pepcid 20mg Tab) 20 mg DAILY PO 03/23/25 20:00 04/22/25 19:59 03/24/25 08:24 20 MG Hydralazine HCl (APRESOLine 20MG INJ) 10 mg Q6H PRN IV For:SBP above 160;DBP above 90 03/23/25 19:30 04/22/25 19:29 Lactated Ringer's 1,000 ml @ 125 mls/hr Q8H IV 03/23/25 19:00 04/22/25 18:59 03/25/25 06:09 125 MLS/HR Morphine Sulfate (morPHINE 4MG SYG) 4 mg Q4H PRN IVP SEVERE PAIN (7-10) 03/23/25 19:30 03/30/25 19:29 03/24/25 19:55 4 MG Ondansetron HCl (zoFRAN 4MG INJ) 4 mg Q6H PRN IV NAUSEA/VOMITING 03/23/25 19:30 04/22/25 19:29 03/24/25 19:55 4 MG DIAGNOSTICS / RADIOLOGY: [ ] ASSESSMENT: Intractable abdominal pain, POA Intractable nausea and vomiting, POA PLAN: patient remains admitted to the medical floor, hemodynamically stable, afebrile, saturating normal on room air. Magnesium level 1.7, troponin negative, albumin 3.0, amylase and lipase are negative. UA negative for leukocyte esterase. Echocardiogram pending to evaluate ejection fraction. GI consulted, follow input and recommendation. NEURO: Minimize central acting medications as possible. Fall Precautions. Well lighted room through the day and minimize interruptions through the night to prevent acute delirium. PULMONARY: Supplemental 02 as needed BiPAP as necessary, for respiratory distress Titrate Fio2 to keep Spo2 > or = 90% DuoNebs and CPT as needed IS hourly while awake for pulmonary hygiene prn Out of bed to chair as tolerated Maintain aspiration precautions at all times CARDIOVASCULAR: Follow hemodynamics. Vital signs per facility protocol GI & NUTRITION: Continue nutritional support Aspirations precautions Prokinetic agents and laxatives as needed KIDNEYS & ELECTROLYTES: Strict monitoring of intake and output Daily weights Avoid nephrotoxic agents Monitor electrolytes and replace as needed Goal urine output of 30mL/hr or 0.5mL/kg/hr Medications to be dosed according to renal function. Avoid contrast if possible ENDOCRINE: Maintain blood glucose between 100-180 at all times. Insulin sliding scale for blood glucose management Hypoglycemia and hyperglycemia protocol in place INFECTIOUS DISEASE: Trend temperature, WBC and procalcitonin level Follow cultures, deescalate antibiotics as soon as possible. Panculture if new onset fever HEMATOLOGY & COAGULATION: Monitor H&H. Keep Hgb > 7 Transfuse 1 unit of PRBC for Hgb < 7 Transfuse 1 pack of platelets of platelets < 20, 000 Watch for any signs and symptoms of bleeding SKIN: Pressure ulcer prevention per facility protocol Specialty mattress as needed ORTHO/REHAB Continue PT/OT PRN: MEDICATIONS Tylenol 650 mg po every 4 hrs for fever zofran 4 mg IV every 6 hrs for n/v Hydralazine 5 mg IV every 4 hrs systolic pressure > 160 bowel regiment: lactulose 20 gm PO BID PRN constipation Supportive measures: Continue GI and DVT prophylaxis Disposition: Pending improvement in clinical condition All questions answered time spent: > 35 min SONA MURCIA MD Mar 25, 2025 10:28
[2025-03-25] MEDS ORDERED: MAGNESIUM 2GM PREMIX 50ML 50 ML IV SCH (10:30)
[2025-03-25] MEDS ORDERED: LIDOCAINE PF 100MG/5ML (2%) SYRINGE 5ML ONE (11:52)
[2025-03-25] MEDS ORDERED: GLYCOPYRROLATE 0.2 MG/ML 5 ML VIAL ONE (11:53)
[2025-03-25] MEDS ORDERED: PANT40TA54 PO (12:42)
--- NOTE | 2025-03-25 12:54 | NUR ---
pt taken for egd
[2025-03-25] MEDS ORDERED: FAMOTIDINE 20MG VIAL IV ONE (13:08)
--- NOTE | 2025-03-25 14:30 | NUR ---
pt RETURN FROM EGD
--- NOTE | 2025-03-25 18:30 | NUR ---
DISCHARGE PT PIV DC'D PT VERBALIZED UNDERSTANDING OF DISCHARGE INSTRUCTION PT HAD NO FURTHER QUESTIONS AT TIME OF DISCHARGE PT GATHERED AND TOOK ALL BELONGINGS
--- NOTE | 2025-03-26 00:20 | HMCSR ---
APPROVED REPORT EXAM: Two-dimensional and M-mode echocardiogram with Doppler and color Doppler. INDICATION ICD: Chest Pain 2D Dimensions RVDd3.2 cmLVEF(%)62.7 (>50%)LVED Vol(simp.)99.0 mL IVSd0.6 (0.7-1.1cm)FS(%)34 %LVES Vol(simp.)44.0 mL LVDd4.3 (3.8-5.6cm)LA (2D)3.2 (1.6-4.0cm)LVEF(%, simp.)56 % PWd0.6 (0.7-1.1cm)Ao Root(2D)2.3 (2.0-3.7cm)LA ESV INDEX (BP)24.62 mL/m2 LVDs2.8 (2.5-4.0cm)LVOT diam1.8 (1.8-2.4cm) IVC diam1.8 cm Deformation Strain Apical 4-16.4 % Apical 2-18.1 % Apical 3-16.3 % Global Strain-16.9 % M-Mode Dimensions EPSS1.0 cm LA (MM)3.1 (1.6-4.0cm) Ao Root(MM)2.8 (2.0-3.7cm) Aortic Valve AoV Vmax1.3 m/Luis Fernando Peak GR6.9 mmHgLVOT Vmax1.0 m/s AoV VTI0.3 mAo Mean GR3.7 mmHgLVOT VTI0.21 m JENS (VMAX)1.99 cm2AVA (VTI) 1.9 cm2 Mitral Valve MV E Vmax84.3 cm/sDECEL Nnpv017 ms MV A Vmax47.6 cm/sP 1/2 T48 ms E/A ratio1.8MVA (PHT)4.6 cm2 TDI E/E' Medial7.2E/E' Lateral7.0 Medial E' Peak V11.71 cm/sLateral E' Peak V12.05 cm/s Pulmonary Valve PV Vmax1.0 m/sPV VTI0.21 mPV Mean GR2.0 mmHg PV Peak GR4.0 mmHg Left Ventricle The left ventricle is normal size. Normal left ventricular systolic wall motion. There is normal left ventricular wall thickness. Left ventricular systolic function is normal, estimated LVEF is 55 to 60 %. The left ventricular diastolic function is normal. Right Ventricle The right ventricle is normal size. The right ventricular systolic function is normal. Atria The left atrium size is normal. The right atrium size is normal. Aortic Valve Aortic valve is trileaflet. No aortic regurgitation is present. There is no aortic valvular stenosis. Mitral Valve The mitral valve is normal in structure. Trace mitral regurgitation. There is no mitral valve stenosi s. Tricuspid Valve The tricuspid valve is normal in structure. Trace tricuspid regurgitation. RVSP is normal. Pulmonic Valve Pulmonic valve is not well visualized. Great Vessels The aortic root is normal in size. The IVC is normal in size and collapses >50% with inspiration. Pericardium There is no pericardial effusion. Conclusion There is normal left ventricular wall thickness. Normal left ventricular systolic wall motion. Left ventricular systolic function is normal, estimated LVEF is 55 to 60%. The left ventricular diastolic function is normal. Trace mitral regurgitation. Trace tricuspid regurgitation. PASP is normal. There is no pericardial effusion.
--- NOTE | 2025-03-26 08:51 | DS ---
Discharge Summary Hospital Course Summary: HOSPITAL COURSE 03/24 patient is seen and examined at bedside, case discussed with the RN, no acute events overnight, patient alert oriented x3, hemodynamically stable, she complains of migraine headache, requesting Fioricet. During my visit patient stated that she was complaining of intractable vomiting when she presented to the ER associated with the epigastric discomfort, amylase and lipase negative, CT of the abdomen no acute findings. We have requested a 12 lead EKG, echocardiogram to evaluate ejection fraction, GI consultation for possible EGD, we will start Fioricet one time now, follow troponin level, amylase and lipase level stat. We will start the patient on regular diet. Follow UA. If medically stable, and no plan from GI standpoint, anticipate discharge home in the next 24 hours. 03/25 patient remains admitted to the medical floor, hemodynamically stable, afebrile, saturating normal on room air. Magnesium level 1.7, troponin negative, albumin 3.0, amylase and lipase are negative. UA negative for leukocyte esterase. Echocardiogram pending to evaluate ejection fraction. GI consulted, follow input and recommendation. During my visit the patient comfortably bed, alert oriented x3, case discussed with the RN, no acute events overnight, headache improved after the dose of Fioricet. No nausea, no vomiting, no abdominal discomfort. EGD REPORT IMPRESSION -normal esophagus, biopsied -chronic gastritis. Biopsied -normal examined duodenum. Biopsied. Echocardiogram reported as follows: Conclusion There is normal left ventricular wall thickness. Normal left ventricular systolic wall motion. Left ventricular systolic function is normal, estimated LVEF is 55 to 60%. The left ventricular diastolic function is normal. Trace mitral regurgitation. Trace tricuspid regurgitation. PASP is normal. There is no pericardial effusion. As of March 25, 2025 patient alert oriented x3, tolerating diet, no nausea, no vomiting, no abdominal discomfort, plan for the patient to be discharged home. 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 daily provided. Patient agreed with the plan and understood the information provided. Home Medications: Active Scripts Pantoprazole Sodium (Pantoprazole Sodium) 40 Mg Tablet.dr, 1 TAB PO DAILY for 30 Days, #30 TAB 1 Refill Prov:SONA MURCIA MD 03/25/25 Reported Medications Alprazolam (Xanax) 0.5 Mg Tablet, 1 TAB PO DAILY PRN for anxiety for 30 Days, #60 TAB 0 Refills 03/24/25 Time spent arranging discharge: 31-60 minutes SONA MURCIA MD Mar 26, 2025 08:51
== END 2025-03-25 18:20 | disposition home or self-care (01) | DRG 392 ==
LOC: EDH 13:19 → EDHIP 18:37 → 3DH 03-24 02:56
PROVIDERS: ADMIT Internal Medicine; ATTEND Internal Medicine
PROC: 0DB98ZX Excision of Duodenum, Via Natural or Artificial Opening Endoscopic, Diagnostic (ICD-10-PCS; principal; 2025-03-25)
PROC: 0DB68ZX Excision of Stomach, Via Natural or Artificial Opening Endoscopic, Diagnostic (ICD-10-PCS; 2025-03-25)
PROC: 0DB58ZX Excision of Esophagus, Via Natural or Artificial Opening Endoscopic, Diagnostic (ICD-10-PCS; 2025-03-25)
DX: K29.00 Acute gastritis without bleeding (principal); G43.909 Migraine, unspecified, not intractable, without status migrainosus; F41.9 Anxiety disorder, unspecified; Z90.710 Acquired absence of both cervix and uterus; Z51.5 Encounter for palliative care; Z98.891 History of uterine scar from previous surgery
CPT/HCPCS: 36415; 43239; 74176; 80048; 80053; 80076; 80305; 81001; 82150; 83690; 83735; 84100; 84484; 84703; 85025; 85027; 93005; 93306; 96374; 99285; A4606; G0378; J1100; J1171; J1650; J2003; J2270; J2405; J2550; J2704; J3490; J7030; J7120; A4215; A4222; A4223; A4620